=== PATIENT | female | born 1955 | race Native Hawaiian/Other Pacific Islander ===

== ENCOUNTER 2016-05-11 08:44 | Inpatient (IN) | payer OTHER ==
[~2016-05-11 08:44] MED LIST: BENAZEP OR; BENAZEP PO; GLYB PO; HCTZ OR; HCTZ PO; INSU100I2 SC; LANTUS100 MG/ML SC; LEVOTHYROXIN25 MCG PO; METFORM PO; RALO60TA PO; REQUIP0.25 MG PO; ROPINIROLE0.25 MG PO; TRICOR145 MG PO; [UNRECOGNIZED DRUG - CODE] PO
[2016-06-01] MEDS ORDERED: AMLO2.5T PO (22:19)
[2016-06-01] MEDS ORDERED: OXYGEN NAS (22:20)
[2016-06-01] MEDS ORDERED: FURO10SO PO (23:25)
[2016-06-01] MEDS ORDERED: GLIP10TA55 PO (23:26)
[2016-06-01] MEDS ORDERED: HEPARIN LOC IV (23:27)
[2016-06-01] MEDS ORDERED: HUMULIN N100 UNIT/M SC (23:28)
[2016-06-01] MEDS ORDERED: INVOKANA100 MG PO (23:30)
[2016-06-01] MEDS ORDERED: LEVEMIR FL100 UNIT/M SC ×2 (23:31)
[2016-06-01] MEDS ORDERED: COZAAR100 MG PO (23:32)
[2016-06-01] MEDS ORDERED: MULTI VITAMN PO (23:32)
[2016-06-01] MEDS ORDERED: ZANTAC 75 PO (23:33)
[2016-06-01] MEDS ORDERED: CARAFATE1 GM PO (23:33)
[2016-06-01] MEDS ORDERED: TOPAMAX25 MG PO (23:34)
[2016-06-01] MEDS ORDERED: VENL37.511 PO ×2 (23:34→23:35)
[2016-06-01] MEDS ORDERED: ASCO500T18 PO (23:35)
[2016-06-01] MEDS ORDERED: ZIPR20CA PO (23:35)
[2016-06-01] MEDS ORDERED: HYDR25TA15 PO (23:36)
[2016-06-01] MEDS ORDERED: ACCU CHECK SC (23:38)
[2016-06-01] MEDS ORDERED: GUAIFENESIN DM PO (23:38)
[2016-06-01] MEDS ORDERED: NAPROSYN500 MG PO (23:39)
[2016-06-01] MEDS ORDERED: ROBITUSS10 PO (23:40)
[2016-06-01] MEDS ORDERED: [UNRECOGNIZED DRUG - REMARK] PO (23:41)
== END 2016-06-11 08:00 | disposition still patient (30) ==
LOC: PAVA 08:44
PROVIDERS: ADMIT Family Medicine
DX: Z51.89 Encounter for other specified aftercare (principal)

== ENCOUNTER 2016-06-11 09:00 | Inpatient (IN) | payer OTHER ==
[~2016-06-11 09:00] MED LIST changes: +ACCU CHECK SC; +AMLO2.5T PO; +ASCO500T18 PO; +CARAFATE1 GM PO; +COZAAR100 MG PO; +FURO10SO PO; +GLIP10TA55 PO; +GUAIFENESIN DM PO; +HEPARIN LOC IV; +HUMULIN N100 UNIT/M SC; +HYDR25TA15 PO; +INVOKANA100 MG PO; +LEVEMIR FL100 UNIT/M SC; +MULTI VITAMN PO; +NAPROSYN500 MG PO; +OXYGEN NAS; +ROBITUSS10 PO; +TOPAMAX25 MG PO; +VENL37.511 PO; +ZANTAC 75 PO; +ZIPR20CA PO; +[UNRECOGNIZED DRUG - REMARK] PO
== END 2016-07-12 08:43 | disposition still patient (30) ==
LOC: PAVA 09:00
PROVIDERS: ADMIT Family Medicine
DX: Z51.89 Encounter for other specified aftercare (principal)

== ENCOUNTER 2016-07-12 09:27 | Inpatient (IN) | payer OTHER ==
[~2016-07-12] VITALS: Ht 152.4 cm; Wt 88.5 kg
[2016-07-26] MEDS ORDERED: ZIPR20IN IM (02:47)
[2016-07-26] MEDS ORDERED: GUAI200S10 PO (02:50)
[2016-07-26] MEDS ORDERED: TYLENOL325 MG PO (02:51)
[2016-07-26] MEDS ORDERED: ONDA4TAB3 PO (02:52)
[2016-07-26] MEDS ORDERED: OMEP20CA PO (02:55)
[2016-07-26] MEDS ORDERED: PANT40TA PO (02:59)
[2016-07-26] MEDS ORDERED: HYDROCHLOROT12.5 M1 PO (03:03)
[2016-07-26] MEDS ORDERED: LISI10TA11 PO (03:05)
[2016-07-26] MEDS ORDERED: PSYL0.52C PO (03:05)
[2016-07-26] MEDS ORDERED: VENLAFAXINE150 M1 PO (03:06)
[2016-07-26] MEDS ORDERED: DIVA500T2 PO (03:09)
[2016-07-26] MEDS ORDERED: HUMULIN R1 ML SC (03:16)
== END 2016-08-09 08:19 | disposition still patient (30) ==
LOC: PAVA 09:27
PROVIDERS: ADMIT Family Medicine
DX: Z51.89 Encounter for other specified aftercare (principal)

== ENCOUNTER 2016-07-13 03:55 | Outpatient (CLI) | payer OTHER ==
[2016-07-13 04:34] LABS: PLATELET COUNT 196 K/uL (152-353)
[2016-07-13 04:56] LABS: POTASSIUM 2.4 mmol/L (3.6-5.2)
== END 2016-07-13 05:55 ==
LOC: LAB 03:55
PROVIDERS: Family Medicine
DX: Z79.899 Other long term (current) drug therapy (principal); R94.6 Abnormal results of thyroid function studies; Z51.81 Encounter for therapeutic drug level monitoring
CPT/HCPCS: 80053; 83036; 84443; 85027

== ENCOUNTER 2016-07-25 15:47 | Inpatient (IN) | payer OTHER ==
[~2016-07-25] VITALS: Ht 152.4 cm; Wt 88.6 kg
[2016-07-25 16:51] LABS: PLATELET COUNT 180 K/uL (152-353)
[2016-07-25 17:07] LABS: POTASSIUM 2.5 mmol/L (3.6-5.2)
[2016-07-25 23:54] VITALS: BP 125/58; TEMP 98.3; Ht 152.4 cm; Wt 88.6 kg
[2016-07-26] MEDS ORDERED: ZIPR20IN IM ×2 (02:47)
[2016-07-26] MEDS ORDERED: GUAI200S10 PO ×2 (02:50)
[2016-07-26] MEDS ORDERED: TYLENOL325 MG PO ×2 (02:51)
[2016-07-26] MEDS ORDERED: ONDA4TAB3 PO ×2 (02:52)
[2016-07-26] MEDS ORDERED: OMEP20CA PO ×2 (02:55)
[2016-07-26] MEDS ORDERED: PANT40TA PO ×2 (02:59)
[2016-07-26] MEDS ORDERED: HYDROCHLOROT12.5 M1 PO ×2 (03:03)
[2016-07-26] MEDS ORDERED: PSYL0.52C PO ×2 (03:05)
[2016-07-26] MEDS ORDERED: LISI10TA11 PO ×2 (03:05)
[2016-07-26] MEDS ORDERED: VENLAFAXINE150 M1 PO ×2 (03:06)
[2016-07-26] MEDS ORDERED: DIVA500T2 PO ×2 (03:09)
[2016-07-26] MEDS ORDERED: HUMULIN R1 ML SC ×2 (03:16)
[2016-07-26 04:00] VITALS: BP 120/66; TEMP 98
[2016-07-26 04:40] LABS: PLATELET COUNT 203 K/uL (152-353)
[2016-07-26 04:43] LABS: POTASSIUM 2.9 mmol/L (3.6-5.2)
[2016-07-26 06:02] VITALS: BP 120/66; TEMP 98
[2016-07-26 08:38] VITALS: BP 121/49; TEMP 99.9
[2016-07-26 12:00] VITALS: BP 151/63; TEMP 98.2
[2016-07-26 16:00] VITALS: BP 153/60; TEMP 98.4
[2016-07-26 20:00] VITALS: BP 121/51; TEMP 101.6
[2016-07-26 21:53] LABS: POTASSIUM 2.7 mmol/L (3.6-5.2)
[2016-07-27] VITALS: BP 118/53; TEMP 99.7
[2016-07-27 04:00] VITALS: BP 97/45; TEMP 98.8
[2016-07-27 07:55] LABS: PLATELET COUNT 159 K/uL (152-353)
[2016-07-27 08:00] VITALS: BP 137/85; TEMP 98.1
[2016-07-27 12:00] VITALS: BP 138/82; TEMP 98
[2016-07-27 16:00] VITALS: BP 137/70; TEMP 98.7
[2016-07-27 20:00] VITALS: BP 138/64; TEMP 98.2
[2016-07-28] VITALS: BP 116/60; TEMP 98.4
[2016-07-28 04:00] VITALS: BP 124/60; TEMP 97.9
[2016-07-28 06:38] LABS: PLATELET COUNT 107 K/uL (152-353)
[2016-07-28 06:46] LABS: POTASSIUM 3.4 mmol/L (3.6-5.2)
[2016-07-28 08:02] VITALS: BP 141/62; TEMP 98
== END 2016-07-28 10:55 | DRG 872 ==
LOC: LAB 15:47 → MED/SURG 22:19
PROVIDERS: Emergency Medicine; ADMIT Family Medicine
DX: A41.89 Other specified sepsis (principal); L03.116 Cellulitis of left lower limb; L03.115 Cellulitis of right lower limb; N39.0 Urinary tract infection, site not specified; K52.89 Other specified noninfective gastroenteritis and colitis; E86.0 Dehydration; R11.2 Nausea with vomiting, unspecified; R19.7 Diarrhea, unspecified; E11.649 Type 2 diabetes mellitus with hypoglycemia without coma; I10 Essential (primary) hypertension
CPT/HCPCS: 36415; 80048; 80053; 80164; 81000; 82948; 83735; 83880; 84100; 85027; 87040; 87045; 87205; 87328; 87329; 87493; 87798; 87899; 96360; 96365; 96366; 96372; J0712; J3475; J3480

== ENCOUNTER 2016-07-28 20:33 | Outpatient (CLI) | payer OTHER ==
[~2016-07-28] VITALS: Ht 152.4 cm; Wt 88.5 kg
[~2016-07-28 20:33] MED LIST changes: +DIVA500T2 PO; +GUAI200S10 PO; +HUMULIN R1 ML SC; +HYDROCHLOROT12.5 M1 PO; +LISI10TA11 PO; +OMEP20CA PO; +ONDA4TAB3 PO; +PANT40TA PO; +PSYL0.52C PO; +TYLENOL325 MG PO; +VENLAFAXINE150 M1 PO; +ZIPR20IN IM
== END 2016-07-28 21:40 ==
LOC: INF 20:33
DX: L03.116 Cellulitis of left lower limb (principal)
CPT/HCPCS: 96365; J0712

== ENCOUNTER 2016-07-29 08:55 | Outpatient (CLI) | payer OTHER ==
[~2016-07-29] VITALS: Ht 152.4 cm; Wt 88.5 kg
[2016-07-29 09:00] VITALS: BP 127/66; TEMP 99
== END 2016-07-29 19:07 | disposition home or self-care (01) ==
LOC: INF 08:55
DX: L03.116 Cellulitis of left lower limb (principal)
CPT/HCPCS: 96365; 96366; J0712

== ENCOUNTER 2016-07-30 08:44 | Outpatient (CLI) | payer OTHER ==
[~2016-07-30] VITALS: Ht 152.4 cm; Wt 88.5 kg
[2016-07-30 08:40] VITALS: BP 151/67; TEMP 98.2
== END 2016-07-30 19:49 | disposition home or self-care (01) ==
LOC: INF 08:44
DX: L03.116 Cellulitis of left lower limb (principal)
CPT/HCPCS: 96365; 96366; J0712

== ENCOUNTER 2016-07-31 09:01 | Outpatient (CLI) | payer OTHER ==
[~2016-07-31] VITALS: Ht 152.4 cm; Wt 1.8 kg
[2016-07-31 08:55] VITALS: BP 117/69; TEMP 98.7
[2016-07-31 11:44] LABS: PLATELET COUNT 299 K/uL (152-353)
[2016-07-31 11:53] LABS: POTASSIUM 2.7 mmol/L (3.6-5.2)
== END 2016-07-31 20:10 | disposition home or self-care (01) ==
LOC: INF 09:01 → LAB 09:01 → INF 20:10
PROVIDERS: Emergency Medicine
DX: R53.83 Other fatigue (principal)
CPT/HCPCS: 36415; 80053; 85027; 87040; 96365; 96366; J0712

== ENCOUNTER 2016-08-01 08:51 | Outpatient (CLI) | payer OTHER ==
[~2016-08-01] VITALS: Ht 152.4 cm; Wt 88.5 kg
[2016-08-01 08:55] VITALS: BP 139/61; TEMP 98
[2016-08-01 10:10] VITALS: BP 131/58; TEMP 98
== END 2016-08-01 23:38 | disposition home or self-care (01) ==
LOC: INF 08:51
DX: L03.116 Cellulitis of left lower limb (principal)
CPT/HCPCS: 96365; 96366; J0712

== ENCOUNTER 2016-08-02 09:33 | Outpatient (CLI) | payer OTHER ==
[~2016-08-02] VITALS: Ht 152.4 cm; Wt 88.5 kg
[2016-08-02 09:20] VITALS: BP 137/52; TEMP 98
[2016-08-02 10:40] VITALS: BP 150/67; TEMP 98
== END 2016-08-02 18:59 | disposition home or self-care (01) ==
LOC: INF 09:33
DX: L03.116 Cellulitis of left lower limb (principal)
CPT/HCPCS: 96365; J0712

== ENCOUNTER 2016-08-03 09:47 | Outpatient (CLI) | payer OTHER ==
[~2016-08-03] VITALS: Ht 165.1 cm; Wt 59.0 kg
== END 2016-08-03 19:21 | disposition home or self-care (01) ==
LOC: INF 09:47
DX: E87.6 Hypokalemia (principal)
CPT/HCPCS: 96365; 96366; J0712

== ENCOUNTER 2016-08-04 09:11 | Outpatient (CLI) | payer OTHER ==
[~2016-08-04] VITALS: Ht 152.4 cm; Wt 1.8 kg
[2016-08-04 09:45] VITALS: BP 144/67; TEMP 98.5
[2016-08-04 09:53] LABS: PLATELET COUNT 332 K/uL (152-353)
[2016-08-04 10:13] LABS: POTASSIUM 3.5 mmol/L (3.6-5.2)
== END 2016-08-04 19:28 | disposition home or self-care (01) ==
LOC: INF 09:11
PROVIDERS: Emergency Medicine
DX: L03.116 Cellulitis of left lower limb (principal)
CPT/HCPCS: 36415; 80053; 85027; 87040; 96365; 96366; J0712

== ENCOUNTER 2016-08-05 08:37 | Outpatient (CLI) | payer OTHER ==
[~2016-08-05] VITALS: Ht 152.4 cm; Wt 88.5 kg
[2016-08-05 08:37] VITALS: BP 121/56; TEMP 98.5
== END 2016-08-05 19:01 | disposition home or self-care (01) ==
LOC: INF 08:37
DX: L03.116 Cellulitis of left lower limb (principal)
CPT/HCPCS: 96365; 96366; J0712

== ENCOUNTER 2016-08-06 08:49 | Outpatient (CLI) | payer OTHER ==
[~2016-08-06] VITALS: Ht 152.4 cm; Wt 88.5 kg
[2016-08-06 09:05] VITALS: BP 129/57; TEMP 98.2
== END 2016-08-06 18:56 | disposition home or self-care (01) ==
LOC: INF 08:49
DX: L03.116 Cellulitis of left lower limb (principal)
CPT/HCPCS: 96365; 96366; J0712

== ENCOUNTER 2016-08-07 09:42 | Outpatient (CLI) | payer OTHER ==
[~2016-08-07] VITALS: Ht 152.4 cm; Wt 88.5 kg
== END 2016-08-07 11:20 | disposition home or self-care (01) ==
LOC: INF 09:42
DX: L03.116 Cellulitis of left lower limb (principal)
CPT/HCPCS: 96365; 96375; J0712; J1642

== ENCOUNTER 2016-08-09 08:53 | Inpatient (IN) | payer OTHER | END 2016-09-09 08:04 | disposition still patient (30) | LOC: PAVA 08:53 | PROVIDERS: ADMIT Family Medicine | DX: Z51.89 Encounter for other specified aftercare (principal) ==

== ENCOUNTER 2016-09-09 09:56 | Inpatient (IN) | payer OTHER | END 2016-10-09 08:32 | disposition still patient (30) | LOC: PAVA 09:56 | PROVIDERS: ADMIT Family Medicine | DX: Z51.89 Encounter for other specified aftercare (principal) ==

== ENCOUNTER 2016-10-07 01:23 | Outpatient (CLI) | payer OTHER | END 2016-10-07 19:07 | disposition home or self-care (01) | LOC: LAB 01:23 | DX: Z16.24 Resistance to multiple antibiotics (principal) | CPT/HCPCS: 87081 ==

== ENCOUNTER 2016-10-09 08:59 | Inpatient (IN) | payer OTHER | END 2016-11-09 08:12 | disposition still patient (30) | LOC: PAVA 08:59 | PROVIDERS: ADMIT Family Medicine | DX: Z51.89 Encounter for other specified aftercare (principal) ==

== ENCOUNTER 2016-10-11 08:48 | Outpatient (CLI) | payer OTHER ==
[2016-10-11 09:21] LABS: PLATELET COUNT 299 K/uL (152-353)
[2016-10-11 09:58] LABS: POTASSIUM 3.2 mmol/L (3.6-5.2)
== END 2016-10-11 19:10 | disposition home or self-care (01) ==
LOC: LAB 08:48
PROVIDERS: Family Medicine
DX: D64.9 Anemia, unspecified (principal); I10 Essential (primary) hypertension; E11.9 Type 2 diabetes mellitus without complications
CPT/HCPCS: 36415; 80053; 83036; 85027

== ENCOUNTER 2016-11-09 08:32 | Inpatient (IN) | payer OTHER | END 2016-12-09 14:58 | disposition still patient (30) | LOC: PAVA 08:32 | PROVIDERS: ADMIT Family Medicine | DX: Z51.89 Encounter for other specified aftercare (principal) ==

== ENCOUNTER 2016-12-09 15:16 | Inpatient (IN) | payer OTHER | END 2017-01-09 08:42 | disposition still patient (30) | LOC: PAVA 15:16 | PROVIDERS: ADMIT Family Medicine | DX: Z51.89 Encounter for other specified aftercare (principal) ==

== ENCOUNTER 2017-01-09 09:28 | Inpatient (IN) | payer OTHER | END 2017-02-09 08:13 | disposition still patient (30) | LOC: PAVA 09:28 | PROVIDERS: ADMIT Family Medicine | DX: Z51.89 Encounter for other specified aftercare (principal) ==

== ENCOUNTER 2017-01-15 13:38 | Outpatient (CLI) | payer OTHER ==
[2017-01-15 14:35] LABS: PLATELET COUNT 284 K/uL (152-353)
[2017-01-15 14:47] LABS: POTASSIUM 3.1 mmol/L (3.6-5.2); SODIUM 139 mmol/L (136-145)
== END 2017-01-15 19:26 | disposition home or self-care (01) ==
LOC: LAB 13:38
PROVIDERS: Family Medicine
DX: R00.2 Palpitations (principal); D50.8 Other iron deficiency anemias; I10 Essential (primary) hypertension; E11.9 Type 2 diabetes mellitus without complications
CPT/HCPCS: 36415; 80053; 80164; 83036; 84443; 85027

== ENCOUNTER 2017-01-23 09:47 | Day surgery (SDC) | payer OTHER ==
[~2017-01-23] VITALS: Ht 30.5 cm; Wt 0.5 kg
== END 2017-01-23 16:10 ==
LOC: OR 09:47
PROC: 05PY03Z Removal of Infusion Device from Upper Vein, Open Approach (ICD-10-PCS; principal; 2017-01-23)
PROC: 05H533Z Insertion of Infusion Device into Right Subclavian Vein, Percutaneous Approach (ICD-10-PCS; 2017-01-23)
DX: I87.8 Other specified disorders of veins (principal); T82.594A Other mechanical complication of infusion catheter, initial encounter
CPT/HCPCS: C1769; C1788; J0690; J1644; J2001; J2250; J2405; J2704; J3010; S0028

== ENCOUNTER 2017-02-09 08:37 | Inpatient (IN) | payer OTHER | END 2017-03-11 09:10 | disposition still patient (30) | LOC: PAVA 08:37 | PROVIDERS: ADMIT Family Medicine | DX: Z51.89 Encounter for other specified aftercare (principal) ==

== ENCOUNTER 2017-03-11 09:34 | Inpatient (IN) | payer OTHER | END 2017-04-11 10:26 | disposition still patient (30) | LOC: PAVA 09:34 | PROVIDERS: ADMIT Family Medicine ==

== ENCOUNTER 2017-04-11 12:53 | Inpatient (IN) | payer OTHER | END 2017-05-11 08:14 | disposition still patient (30) | LOC: PAVA 12:53 | PROVIDERS: ADMIT Family Medicine ==

== ENCOUNTER 2017-04-16 07:51 | Outpatient (CLI) | payer OTHER ==
[2017-04-16 08:20] LABS: PLATELET COUNT 247 K/uL (152-353)
[2017-04-16 08:24] LABS: POTASSIUM 3.7 mmol/L (3.6-5.2)
== END 2017-04-16 08:55 | disposition home or self-care (01) ==
LOC: LAB 07:51
PROVIDERS: Family Medicine
DX: Z79.01 Long term (current) use of anticoagulants (principal); Z13.1 Encounter for screening for diabetes mellitus; Z51.81 Encounter for therapeutic drug level monitoring; E11.9 Type 2 diabetes mellitus without complications
CPT/HCPCS: 36415; 80053; 83036; 85027

== ENCOUNTER 2017-04-23 10:01 | Outpatient (CLI) | payer OTHER | END 2017-04-23 11:05 | disposition home or self-care (01) | LOC: RAD 10:01 | DX: M25.512 Pain in left shoulder (principal); M25.511 Pain in right shoulder ==

== ENCOUNTER 2017-05-11 09:11 | Inpatient (IN) | payer OTHER | END 2017-06-11 08:33 | disposition still patient (30) | LOC: PAVA 09:11 | PROVIDERS: ADMIT Family Medicine ==

== ENCOUNTER 2017-06-11 09:17 | Inpatient (IN) | payer OTHER | END 2017-07-12 08:34 | disposition still patient (30) | LOC: PAVA 09:17 | PROVIDERS: ADMIT Family Medicine ==

== ENCOUNTER 2017-07-12 09:44 | Inpatient (IN) | payer OTHER | END 2017-08-09 08:09 | disposition still patient (30) | LOC: PAVA 09:44 | PROVIDERS: ADMIT Family Medicine ==

== ENCOUNTER 2017-08-09 09:11 | Inpatient (IN) | payer OTHER | END 2017-09-09 08:00 | disposition still patient (30) | LOC: PAVA 09:11 | PROVIDERS: ADMIT Family Medicine ==

== ENCOUNTER 2017-09-09 09:00 | Inpatient (IN) | payer OTHER | END 2017-10-09 08:13 | disposition still patient (30) | LOC: PAVA 09:00 | PROVIDERS: ADMIT Family Medicine ==

== ENCOUNTER 2017-09-10 15:15 | Outpatient (CLI) | payer OTHER | END 2017-09-10 23:39 | disposition home or self-care (01) | LOC: US 15:15 | DX: R22.1 Localized swelling, mass and lump, neck (principal); H92.02 Otalgia, left ear | CPT/HCPCS: 36415; 85027; 87040 ==

== ENCOUNTER 2017-09-10 18:54 | Outpatient (CLI) | payer OTHER ==
[2017-09-10 19:39] LABS: PLATELET COUNT 256 K/uL (152-353)
== END 2017-09-10 23:40 | disposition home or self-care (01) ==
LOC: LABW 18:54
PROVIDERS: Family Medicine
DX: H92.02 Otalgia, left ear (principal); R22.1 Localized swelling, mass and lump, neck
CPT/HCPCS: 36415; 85027; 87040

== ENCOUNTER 2017-09-14 10:20 | Outpatient (CLI) | payer OTHER | END 2017-09-14 20:25 | disposition home or self-care (01) | LOC: LAB 10:20 | DX: D50.8 Other iron deficiency anemias (principal) | CPT/HCPCS: 36415; 82728; 83540; 83550 ==

== ENCOUNTER 2017-09-27 07:31 | Day surgery (SDC) | payer OTHER ==
[2017-09-27 08:23] LABS: PLATELET COUNT 216 K/uL (152-353)
== END 2017-09-27 10:02 ==
LOC: OR 07:31
PROVIDERS: Internal Medicine
PROC: 0DB68ZZ Excision of Stomach, Via Natural or Artificial Opening Endoscopic (ICD-10-PCS; principal; 2017-09-27)
DX: C15.5 Malignant neoplasm of lower third of esophagus (principal); R07.0 Pain in throat; K22.9 Disease of esophagus, unspecified; K25.9 Gastric ulcer, unspecified as acute or chronic, without hemorrhage or perforation; K29.50 Unspecified chronic gastritis without bleeding; K21.9 Gastro-esophageal reflux disease without esophagitis
CPT/HCPCS: 80053; 85027; J1642; J2001; J2405; J2704; J3490

== ENCOUNTER 2017-10-09 08:54 | Inpatient (IN) | payer OTHER | END 2017-11-09 08:22 | disposition still patient (30) | LOC: PAVA 08:54 | PROVIDERS: ADMIT Family Medicine ==

== ENCOUNTER 2017-10-16 07:59 | Outpatient (CLI) | payer OTHER ==
[2017-10-16 08:29] LABS: PLATELET COUNT 257 K/uL (152-353)
== END 2017-10-16 19:51 | disposition home or self-care (01) ==
LOC: LAB 07:59
PROVIDERS: Family Medicine
DX: I10 Essential (primary) hypertension (principal); E11.9 Type 2 diabetes mellitus without complications
CPT/HCPCS: 36415; 80053; 83036; 85027

== ENCOUNTER 2017-11-07 08:04 | Outpatient (CLI) | payer OTHER | END 2017-11-07 23:15 | disposition home or self-care (01) | LOC: CT 08:04 | DX: C15.5 Malignant neoplasm of lower third of esophagus (principal) ==

== ENCOUNTER 2017-11-09 08:48 | Inpatient (IN) | payer OTHER | END 2017-12-09 14:16 | disposition still patient (30) | LOC: PAVA 08:48 | PROVIDERS: ADMIT Family Medicine ==

== ENCOUNTER 2017-11-20 15:51 | Outpatient (CLI) | payer OTHER | END 2017-11-20 22:52 | disposition home or self-care (01) | LOC: LAB 15:51 | DX: T81.30XA Disruption of wound, unspecified, initial encounter (principal) | CPT/HCPCS: 87070; 87077; 87185; 87186; 87205 ==

== ENCOUNTER 2017-12-09 14:37 | Inpatient (IN) | payer OTHER | END 2018-01-09 08:00 | disposition still patient (30) | LOC: PAVA 14:37 | PROVIDERS: ADMIT Family Medicine ==

== ENCOUNTER 2018-01-01 04:14 | Outpatient (CLI) | payer OTHER ==
[2018-01-01 06:36] LABS: POTASSIUM 2.5 mmol/L (3.6-5.2)
== END 2018-01-01 19:21 | disposition home or self-care (01) ==
LOC: LAB 04:14
PROVIDERS: Family Medicine
DX: E87.6 Hypokalemia (principal)
CPT/HCPCS: 36415; 80053

== ENCOUNTER 2018-01-07 04:05 | Outpatient (CLI) | payer OTHER ==
[2018-01-07 06:31] LABS: POTASSIUM 2.5 mmol/L (3.6-5.2)
== END 2018-01-07 21:57 | disposition home or self-care (01) ==
LOC: LAB 04:05
PROVIDERS: Family Medicine
DX: R79.89 Other specified abnormal findings of blood chemistry (principal)
CPT/HCPCS: 80053

== ENCOUNTER 2018-01-09 09:00 | Inpatient (IN) | payer OTHER | END 2018-02-09 09:58 | disposition still patient (30) | LOC: PAVA 09:00 | PROVIDERS: ADMIT Family Medicine ==

== ENCOUNTER 2018-01-14 05:18 | Outpatient (CLI) | payer OTHER ==
[2018-01-14 08:51] LABS: POTASSIUM 2.9 mmol/L (3.6-5.2); SODIUM 143 mmol/L (136-145)
[2018-01-14 09:33] LABS: PLATELET COUNT 64 K/uL (152-353)
== END 2018-01-14 19:33 | disposition home or self-care (01) ==
LOC: LAB 05:18
PROVIDERS: Family Medicine
DX: E11.9 Type 2 diabetes mellitus without complications (principal); Z79.899 Other long term (current) drug therapy
CPT/HCPCS: 36415; 80053; 80164; 83036; 84443; 85027

== ENCOUNTER 2018-01-24 03:38 | Outpatient (CLI) | payer OTHER ==
[2018-01-24 06:45] LABS: POTASSIUM 3.9 mmol/L (3.6-5.2)
== END 2018-01-24 21:09 | disposition home or self-care (01) ==
LOC: LAB 03:38
PROVIDERS: Family Medicine
DX: E87.4 Mixed disorder of acid-base balance (principal)
CPT/HCPCS: 36415; 80053

== ENCOUNTER 2018-02-09 10:15 | Inpatient (IN) | payer OTHER | END 2018-03-11 08:41 | disposition still patient (30) | LOC: PAVA 10:15 | PROVIDERS: ADMIT Family Medicine ==

== ENCOUNTER 2018-03-11 09:06 | Inpatient (IN) | payer OTHER | END 2018-04-11 08:12 | disposition still patient (30) | LOC: PAVA 09:06 | PROVIDERS: ADMIT Family Medicine ==

== ENCOUNTER 2018-04-11 08:34 | Inpatient (IN) | payer OTHER | END 2018-05-11 08:07 | disposition still patient (30) | LOC: PAVA 08:34 | PROVIDERS: ADMIT Family Medicine ==

== ENCOUNTER 2018-04-15 03:51 | Outpatient (CLI) | payer OTHER ==
[2018-04-15 04:46] LABS: PLATELET COUNT 234 K/uL (152-353)
[2018-04-15 05:15] LABS: POTASSIUM 2.2 mmol/L (3.6-5.2)
== END 2018-04-15 19:14 | disposition home or self-care (01) ==
LOC: LAB 03:51
PROVIDERS: Family Medicine
DX: E11.9 Type 2 diabetes mellitus without complications (principal); I10 Essential (primary) hypertension
CPT/HCPCS: 36415; 80053; 83036; 85027

== ENCOUNTER 2018-04-16 14:14 | Outpatient (CLI) | payer OTHER | END 2018-04-16 22:20 | disposition home or self-care (01) | LOC: RAD 14:14 | DX: R06.89 Other abnormalities of breathing (principal) | CPT/HCPCS: 36600; 82805 ==

== ENCOUNTER 2018-04-17 08:06 | Outpatient (CLI) | payer OTHER | END 2018-04-17 20:28 | disposition home or self-care (01) | LOC: LAB 08:06 | DX: R79.89 Other specified abnormal findings of blood chemistry (principal) | CPT/HCPCS: 84132 ==

== ENCOUNTER 2018-04-22 17:59 | Outpatient (CLI) | payer OTHER | END 2018-04-22 22:56 | disposition home or self-care (01) | LOC: LAB 17:59 | DX: E87.6 Hypokalemia (principal) | CPT/HCPCS: 84132 ==

== ENCOUNTER 2018-05-11 08:24 | Inpatient (IN) | payer OTHER | END 2018-06-11 10:23 | disposition still patient (30) | LOC: PAVA 08:24 | PROVIDERS: ADMIT Family Medicine ==

== ENCOUNTER 2018-05-29 09:55 | Outpatient (CLI) | payer OTHER | END 2018-05-29 19:21 | disposition home or self-care (01) | LOC: CT 09:55 | DX: C15.5 Malignant neoplasm of lower third of esophagus (principal) | CPT/HCPCS: 82565; 84520 ==

== ENCOUNTER 2018-06-11 11:01 | Inpatient (IN) | payer OTHER | END 2018-07-12 14:18 | disposition still patient (30) | LOC: PAVA 11:01 | PROVIDERS: ADMIT Family Medicine ==

== ENCOUNTER 2018-07-12 14:19 | Inpatient (IN) | payer OTHER | END 2018-08-09 09:16 | disposition still patient (30) | LOC: PAVA 14:19 | PROVIDERS: ADMIT Family Medicine ==

== ENCOUNTER 2018-08-09 10:08 | Inpatient (IN) | payer OTHER | END 2018-09-09 07:57 | disposition still patient (30) | LOC: PAVA 10:08 | PROVIDERS: ADMIT Family Medicine ==

== ENCOUNTER 2018-09-02 03:57 | Outpatient (CLI) | payer OTHER | END 2018-09-02 19:18 | disposition home or self-care (01) | LOC: LAB 03:57 | DX: E11.9 Type 2 diabetes mellitus without complications (principal) | CPT/HCPCS: 83036 ==

== ENCOUNTER 2018-09-09 08:38 | Inpatient (IN) | payer OTHER | END 2018-10-09 09:44 | disposition still patient (30) | LOC: PAVA 08:38 | PROVIDERS: ADMIT Family Medicine ==

== ENCOUNTER 2018-10-05 03:56 | Outpatient (CLI) | payer OTHER | END 2018-10-05 22:32 | disposition home or self-care (01) | LOC: LAB 03:56 | DX: R79.9 Abnormal finding of blood chemistry, unspecified (principal) | CPT/HCPCS: 84132 ==

== ENCOUNTER 2018-10-09 11:06 | Inpatient (IN) | payer OTHER | END 2018-11-09 08:14 | disposition still patient (30) | LOC: PAVA 11:06 | PROVIDERS: ADMIT Family Medicine | DX: Z51.89 Encounter for other specified aftercare (principal) ==

== ENCOUNTER 2018-10-13 03:37 | Outpatient (CLI) | payer OTHER | END 2018-10-13 19:35 | disposition home or self-care (01) | LOC: LAB 03:37 | DX: E87.6 Hypokalemia (principal) | CPT/HCPCS: 84132 ==

== ENCOUNTER 2018-10-28 03:46 | Outpatient (CLI) | payer OTHER | END 2018-10-28 19:14 | disposition home or self-care (01) | LOC: LAB 03:46 | DX: E87.5 Hyperkalemia (principal) | CPT/HCPCS: 36415; 84132 ==

== ENCOUNTER 2018-11-09 08:31 | Inpatient (IN) | payer OTHER | END 2018-12-09 08:31 | disposition still patient (30) | LOC: PAVA 08:31 | PROVIDERS: ADMIT Family Medicine ==

== ENCOUNTER 2018-11-13 07:32 | Outpatient (CLI) | payer OTHER ==
[2018-11-13 07:42] LABS: PLATELET COUNT 210 K/uL (152-353)
[2018-11-13 08:31] LABS: POTASSIUM 3.2 mmol/L (3.6-5.2)
== END 2018-11-13 23:26 | disposition home or self-care (01) ==
LOC: LAB 07:32
PROVIDERS: Family Medicine
DX: E11.9 Type 2 diabetes mellitus without complications (principal)
CPT/HCPCS: 36415; 80053; 83036; 85027

== ENCOUNTER 2018-12-09 09:23 | Inpatient (IN) | payer OTHER | END 2019-01-09 09:09 | disposition still patient (30) | LOC: PAVA 09:23 | PROVIDERS: ADMIT Family Medicine ==

== ENCOUNTER 2019-01-09 10:18 | Inpatient (IN) | payer OTHER | END 2019-02-09 16:00 | disposition still patient (30) | LOC: PAVA 10:18 | PROVIDERS: ADMIT Family Medicine ==

== ENCOUNTER 2019-02-09 16:05 | Inpatient (IN) | payer OTHER | END 2019-03-11 08:07 | disposition still patient (30) | LOC: PAVA 16:05 | PROVIDERS: ADMIT Family Medicine ==

== ENCOUNTER → 2019-02-10 | Outpatient (CLI) | payer OTHER ==
[2019-02-10 06:44] LABS: PLATELET COUNT 163 K/uL (152-353)
[2019-02-10 06:59] LABS: POTASSIUM 3.9 mmol/L (3.6-5.2); SODIUM 140 mmol/L (136-145)
== END ==
LOC: LAB 04:03
PROVIDERS: Family Medicine
DX: E11.9 Type 2 diabetes mellitus without complications (principal); Z79.899 Other long term (current) drug therapy; E03.8 Other specified hypothyroidism
CPT/HCPCS: 36415; 80053; 80164; 83036; 84443; 85027

== ENCOUNTER 2019-03-05 03:29 | Outpatient (CLI) | payer OTHER ==
[2019-03-05 05:31] LABS: POTASSIUM 3.6 mmol/L (3.6-5.2)
== END 2019-03-05 20:13 | disposition home or self-care (01) ==
LOC: LAB 03:29 → US 03:29 → LAB 20:13
PROVIDERS: Family Medicine
DX: R79.89 Other specified abnormal findings of blood chemistry (principal); N19 Unspecified kidney failure
CPT/HCPCS: 80053

== ENCOUNTER 2019-03-06 00:55 | Outpatient (CLI) | payer OTHER | END 2019-03-06 19:42 | disposition home or self-care (01) | LOC: LAB 00:55 | DX: R82.998 Other abnormal findings in urine (principal) | CPT/HCPCS: 82570; 82575; 83935; 84156 ==

== ENCOUNTER 2019-03-11 09:17 | Inpatient (IN) | payer OTHER | END 2019-04-11 09:04 | disposition still patient (30) | LOC: PAVA 09:17 | PROVIDERS: ADMIT Family Medicine ==

== ENCOUNTER 2019-03-20 03:51 | Outpatient (CLI) | payer OTHER ==
[2019-03-20 05:48] LABS: POTASSIUM 3.8 mmol/L (3.6-5.2)
== END 2019-03-20 20:35 | disposition home or self-care (01) ==
LOC: LAB 03:51
PROVIDERS: Family Medicine
DX: R79.89 Other specified abnormal findings of blood chemistry (principal)
CPT/HCPCS: 80053

== ENCOUNTER 2019-04-10 03:30 | Outpatient (CLI) | payer OTHER | END 2019-04-10 20:30 | disposition home or self-care (01) | LOC: LAB 03:30 | DX: D50.8 Other iron deficiency anemias (principal); E55.9 Vitamin D deficiency, unspecified | CPT/HCPCS: 82306; 82607; 82746 ==

== ENCOUNTER 2019-04-11 11:05 | Inpatient (IN) | payer OTHER | END 2019-05-11 08:00 | disposition still patient (30) | LOC: PAVA 11:05 | PROVIDERS: ADMIT Family Medicine ==

== ENCOUNTER 2019-05-11 09:00 | Inpatient (IN) | payer OTHER | END 2019-06-11 08:00 | disposition still patient (30) | LOC: PAVA 09:00 | PROVIDERS: ADMIT Family Medicine ==

== ENCOUNTER 2019-05-13 07:06 | Outpatient (CLI) | payer OTHER | END 2019-05-13 20:13 | disposition home or self-care (01) | LOC: LAB 07:06 | DX: E11.9 Type 2 diabetes mellitus without complications (principal) | CPT/HCPCS: 83036 ==

== ENCOUNTER 2019-06-11 08:31 | Inpatient (IN) | payer OTHER | END 2019-07-12 09:32 | disposition still patient (30) | LOC: PAVA 08:31 | PROVIDERS: ADMIT Family Medicine ==

== ENCOUNTER 2019-07-12 09:52 | Inpatient (IN) | payer OTHER | END 2019-08-10 12:47 | disposition still patient (30) | LOC: PAVA 09:52 | PROVIDERS: ADMIT Family Medicine ==

== ENCOUNTER 2019-08-10 13:09 | Inpatient (IN) | payer OTHER | END 2019-09-10 08:59 | disposition still patient (30) | LOC: PAVA 13:09 | PROVIDERS: ADMIT Family Medicine ==

== ENCOUNTER 2019-08-11 05:40 | Outpatient (CLI) | payer OTHER ==
[2019-08-11 06:15] LABS: PLATELET COUNT 182 K/uL (152-353)
[2019-08-11 07:05] LABS: POTASSIUM 3.9 mmol/L (3.6-5.2)
== END 2019-08-11 19:06 | disposition home or self-care (01) ==
LOC: LAB 05:40
PROVIDERS: Family Medicine
DX: E11.9 Type 2 diabetes mellitus without complications (principal); Z79.899 Other long term (current) drug therapy; E03.9 Hypothyroidism, unspecified
CPT/HCPCS: 80053; 80164; 83036; 84443; 85027

== ENCOUNTER 2019-09-10 09:27 | Inpatient (IN) | payer OTHER | END 2019-10-10 08:04 | disposition still patient (30) | LOC: PAVA 09:27 | PROVIDERS: ADMIT Family Medicine ==

== ENCOUNTER 2019-10-10 08:56 | Inpatient (IN) | payer OTHER | END 2019-11-10 08:12 | disposition still patient (30) | LOC: PAVA 08:56 | PROVIDERS: ADMIT Family Medicine | CPT/HCPCS: 87635; U0002 ==

== ENCOUNTER 2019-11-10 06:31 | Outpatient (CLI) | payer OTHER | END 2019-11-10 19:49 | disposition home or self-care (01) | LOC: LAB 06:31 | DX: E11.9 Type 2 diabetes mellitus without complications (principal) | CPT/HCPCS: 83036 ==

== ENCOUNTER 2019-11-10 08:47 | Inpatient (IN) | payer OTHER | END 2019-12-10 08:27 | disposition still patient (30) | LOC: PAVA 08:47 | PROVIDERS: ADMIT Family Medicine | CPT/HCPCS: 87635; U0002 ==

== ENCOUNTER 2019-12-10 09:54 | Inpatient (IN) | payer OTHER | END 2020-01-10 08:23 | disposition still patient (30) | LOC: PAVA 09:54 | PROVIDERS: ADMIT Family Medicine | CPT/HCPCS: 87635; U0002 ==

== ENCOUNTER 2020-01-10 09:03 | Inpatient (IN) | payer OTHER | END 2020-02-10 10:51 | disposition still patient (30) | LOC: PAVA 09:03 | PROVIDERS: ADMIT Family Medicine | CPT/HCPCS: 87635; U0002 ==

== ENCOUNTER 2020-02-10 11:33 | Inpatient (IN) | payer OTHER | END 2020-03-11 09:34 | disposition still patient (30) | LOC: PAVA 11:33 | PROVIDERS: ADMIT Family Medicine ==

== ENCOUNTER 2020-02-12 07:02 | Outpatient (CLI) | payer OTHER ==
[2020-02-12 07:30] LABS: PLATELET COUNT 165 K/uL (152-353)
== END 2020-02-12 21:46 | disposition home or self-care (01) ==
LOC: LAB 07:02
PROVIDERS: Family Medicine
DX: Z79.899 Other long term (current) drug therapy (principal); E03.8 Other specified hypothyroidism; J44.9 Chronic obstructive pulmonary disease, unspecified; E78.49 Other hyperlipidemia; D50.8 Other iron deficiency anemias; E11.65 Type 2 diabetes mellitus with hyperglycemia; I10 Essential (primary) hypertension
CPT/HCPCS: 80053; 80164; 83036; 84443; 85027

== ENCOUNTER 2020-03-11 10:55 | Inpatient (IN) | payer OTHER | END 2020-04-11 08:00 | disposition still patient (30) | LOC: PAVA 10:55 | PROVIDERS: ADMIT Family Medicine ==

== ENCOUNTER 2020-04-11 09:00 | Inpatient (IN) | payer OTHER | END 2020-05-11 08:39 | disposition still patient (30) | LOC: PAVA 09:00 | PROVIDERS: ADMIT Family Medicine; ATTEND Family Medicine ==

== ENCOUNTER 2020-05-11 06:54 | Outpatient (CLI) | payer OTHER | END 2020-05-11 22:21 | disposition home or self-care (01) | LOC: LAB 06:54 | PROVIDERS: ATTEND Family Medicine | DX: E11.9 Type 2 diabetes mellitus without complications (principal); J44.9 Chronic obstructive pulmonary disease, unspecified; E78.5 Hyperlipidemia, unspecified; D50.9 Iron deficiency anemia, unspecified; I10 Essential (primary) hypertension | CPT/HCPCS: 83036 ==

== ENCOUNTER 2020-05-11 09:37 | Inpatient (IN) | payer OTHER | END 2020-06-11 08:29 | disposition still patient (30) | LOC: PAVA 09:37 | PROVIDERS: ADMIT Family Medicine; ATTEND Family Medicine ==

== ENCOUNTER 2020-06-11 09:01 | Inpatient (IN) | payer OTHER | END 2020-07-12 13:11 | disposition still patient (30) | LOC: PAVA 09:01 | PROVIDERS: ADMIT Family Medicine; ATTEND Family Medicine ==

== ENCOUNTER 2020-07-12 14:27 | Inpatient (IN) | payer OTHER | END 2020-08-09 08:41 | disposition still patient (30) | LOC: PAVA 14:27 | PROVIDERS: ADMIT Family Medicine; ATTEND Family Medicine ==

== ENCOUNTER 2020-08-09 09:19 | Inpatient (IN) | payer OTHER | END 2020-09-09 08:34 | disposition still patient (30) | LOC: PAVA 09:19 | PROVIDERS: ADMIT Family Medicine; ATTEND Family Medicine ==

== ENCOUNTER 2020-08-11 11:36 | Outpatient (CLI) | payer OTHER ==
[2020-08-11 12:28] LABS: POTASSIUM 4.2 mmol/L (3.6-5.2)
[2020-08-11 12:39] LABS: PLATELET COUNT 194 K/uL (152-353)
== END 2020-08-11 21:11 | disposition home or self-care (01) ==
LOC: LAB 11:36
PROVIDERS: ATTEND Family Medicine
DX: E03.8 Other specified hypothyroidism (principal); J44.9 Chronic obstructive pulmonary disease, unspecified; E78.49 Other hyperlipidemia; D50.8 Other iron deficiency anemias; E11.65 Type 2 diabetes mellitus with hyperglycemia; I10 Essential (primary) hypertension
CPT/HCPCS: 80053; 80164; 83036; 84443; 85027

== ENCOUNTER 2020-09-09 09:45 | Inpatient (IN) | payer OTHER | END 2020-10-09 11:58 | disposition still patient (30) | LOC: PAVA 09:45 | PROVIDERS: ADMIT Family Medicine; ATTEND Family Medicine ==

== ENCOUNTER 2020-10-07 17:07 | Outpatient (CLI) | payer OTHER ==
[2020-10-07 17:41] LABS: PLATELET COUNT 179 K/uL (152-353)
[2020-10-07 17:59] LABS: POTASSIUM 4.8 mmol/L (3.6-5.2); SODIUM 137 mmol/L (136-145)
== END 2020-10-07 20:42 | disposition home or self-care (01) ==
LOC: LABW 17:07
PROVIDERS: ATTEND Family Medicine
DX: J44.9 Chronic obstructive pulmonary disease, unspecified (principal); R06.02 Shortness of breath; R53.83 Other fatigue; D64.89 Other specified anemias
CPT/HCPCS: 36415; 80053; 82553; 83735; 84100; 84484; 85027; 85379; 93005

== ENCOUNTER 2020-10-08 00:37 | Outpatient (CLI) | payer OTHER | END 2020-10-08 21:42 | disposition home or self-care (01) | LOC: LAB 00:37 | PROVIDERS: ATTEND Family Medicine | DX: R53.83 Other fatigue (principal) | CPT/HCPCS: 81000; 87077; 87086; 87088; 87186 ==

== ENCOUNTER 2020-10-09 12:14 | Inpatient (IN) | payer OTHER | END 2020-11-09 13:25 | disposition still patient (30) | LOC: PAVA 12:14 | PROVIDERS: ADMIT Family Medicine; ATTEND Family Medicine ==

== ENCOUNTER 2020-10-11 14:07 | Outpatient (CLI) | payer OTHER | END 2020-10-11 19:45 | disposition home or self-care (01) | LOC: RESP 14:07 | PROVIDERS: ATTEND Family Medicine | DX: R06.02 Shortness of breath (principal) ==

== ENCOUNTER 2020-10-14 08:08 | Outpatient (CLI) | payer OTHER ==
[~2020-10-14] VITALS: Ht 142.2 cm; Wt 74.4 kg
== END 2020-10-14 20:23 | disposition home or self-care (01) ==
LOC: NM 08:08
PROVIDERS: ATTEND Family Medicine
DX: R06.02 Shortness of breath (principal)
CPT/HCPCS: A9500; J2785

== ENCOUNTER 2020-11-01 07:36 | Outpatient (CLI) | payer OTHER ==
[2020-11-01 08:04] LABS: POTASSIUM 3.6 mmol/L (3.6-5.2); SODIUM 141 mmol/L (136-145)
== END 2020-11-01 20:54 | disposition home or self-care (01) ==
LOC: LAB 07:36
PROVIDERS: ATTEND Family Medicine
DX: E11.42 Type 2 diabetes mellitus with diabetic polyneuropathy (principal); E11.65 Type 2 diabetes mellitus with hyperglycemia; I10 Essential (primary) hypertension
CPT/HCPCS: 80053; 82553; 83735; 84100; 84484

== ENCOUNTER 2020-11-02 09:16 | Outpatient (CLI) | payer OTHER ==
[~2020-11-02] VITALS: Ht 152.4 cm; Wt 84.4 kg
== END 2020-11-02 22:04 | disposition home or self-care (01) ==
LOC: INF 09:16
PROVIDERS: ATTEND Family Medicine
DX: Z00.01 Encounter for general adult medical examination with abnormal findings (principal); E77.8 Other disorders of glycoprotein metabolism
CPT/HCPCS: 96361; 96374

== ENCOUNTER 2020-11-04 09:06 | Outpatient (CLI) | payer OTHER ==
[2020-11-04 09:19] LABS: POTASSIUM 3.3 mmol/L (3.6-5.2)
== END 2020-11-04 22:00 | disposition home or self-care (01) ==
LOC: LAB 09:06
PROVIDERS: ATTEND Family Medicine
DX: E03.8 Other specified hypothyroidism (principal); I10 Essential (primary) hypertension; E11.42 Type 2 diabetes mellitus with diabetic polyneuropathy
CPT/HCPCS: 80053

== ENCOUNTER 2020-11-09 14:30 | Inpatient (IN) | payer OTHER | END 2020-12-09 08:00 | disposition still patient (30) | LOC: PAVA 14:30 | PROVIDERS: ADMIT Family Medicine; ATTEND Family Medicine ==

== ENCOUNTER 2020-11-10 11:35 | Outpatient (CLI) | payer OTHER | END 2020-11-10 21:00 | disposition home or self-care (01) | LOC: LAB 11:35 | PROVIDERS: ATTEND Family Medicine | DX: J44.9 Chronic obstructive pulmonary disease, unspecified (principal); E78.49 Other hyperlipidemia; D50.8 Other iron deficiency anemias; E11.65 Type 2 diabetes mellitus with hyperglycemia; I10 Essential (primary) hypertension | CPT/HCPCS: 83036 ==

== ENCOUNTER 2020-12-09 09:20 | Inpatient (IN) | payer OTHER | END 2021-01-09 08:00 | disposition still patient (30) | LOC: PAVA 09:20 | PROVIDERS: ADMIT Family Medicine; ATTEND Family Medicine ==

== ENCOUNTER 2020-12-14 14:02 | Outpatient (CLI) | payer OTHER | END 2020-12-14 19:19 | disposition home or self-care (01) | LOC: LAB 14:02 | PROVIDERS: ATTEND Family Medicine | DX: R82.998 Other abnormal findings in urine (principal); R45.1 Restlessness and agitation; R30.0 Dysuria; R35.0 Frequency of micturition | CPT/HCPCS: 81000 ==

== ENCOUNTER 2021-01-05 07:30 | Outpatient (CLI) | payer OTHER | END 2021-01-05 23:24 | disposition home or self-care (01) | LOC: LAB 07:30 | PROVIDERS: ATTEND Family Medicine | DX: E11.42 Type 2 diabetes mellitus with diabetic polyneuropathy (principal) | CPT/HCPCS: 82947 ==

== ENCOUNTER 2021-01-09 09:00 | Inpatient (IN) | payer OTHER ==
[2021-02-01] MEDS ORDERED: PX ASPIRIN325 M1 PO (03:22)
[2021-02-01] MEDS ORDERED: LORA10TA3 PO (03:24)
[2021-02-01] MEDS ORDERED: VENLAFAXINE150 M1 PO (03:25)
[2021-02-01] MEDS ORDERED: FLONASE AL50 MCG/ACT NAS (03:26)
[2021-02-01] MEDS ORDERED: ZIPR20CA PO ×2 (03:30→03:32)
[2021-02-01] MEDS ORDERED: LEVEMIR FL100 UNIT/M SC (03:40)
[2021-02-01] MEDS ORDERED: POT CHLORIDE10 ME1 PO (03:55)
[2021-02-01] MEDS ORDERED: CARV3.12 PO (04:01)
[2021-02-01] MEDS ORDERED: VALPROIC A250 MG/5 M PO (04:04)
== END 2021-02-09 09:09 | disposition still patient (30) ==
LOC: PAVA 09:00
PROVIDERS: ADMIT Family Medicine; ATTEND Family Medicine

== ENCOUNTER 2021-01-10 09:33 | Outpatient (CLI) | payer OTHER | END 2021-01-10 22:38 | disposition home or self-care (01) | LOC: LAB 09:33 | PROVIDERS: ATTEND Family Medicine | DX: R32 Unspecified urinary incontinence (principal) | CPT/HCPCS: 81000 ==

== ENCOUNTER 2021-01-13 12:57 | Emergency (ER) | payer OTHER ==
[~2021-01-13] VITALS: Ht 152.4 cm; Wt 77.2 kg
[2021-01-13 12:57] VITALS: TEMP 98.8
[2021-01-13 14:05] LABS: PLATELET COUNT 175 K/uL (152-353)
[2021-01-13 17:00] VITALS: BP 119/60
== END 2021-01-13 17:17 ==
LOC: ED 12:59
PROVIDERS: Emergency Medicine Emergency Medical Services
DX: R53.1 Weakness (principal); W18.39XA Other fall on same level, initial encounter; Z91.81 History of falling; Y92.128 Other place in nursing home as the place of occurrence of the external cause
CPT/HCPCS: 36415; 80053; 81000; 85027; 96360; 99284; J1642

== ENCOUNTER 2021-01-14 09:24 | Outpatient (CLI) | payer OTHER ==
[2021-01-14 10:02] LABS: POTASSIUM 3.7 mmol/L (3.6-5.2)
== END 2021-01-14 19:57 | disposition home or self-care (01) ==
LOC: LAB 09:24
PROVIDERS: ATTEND Family Medicine
DX: E11.9 Type 2 diabetes mellitus without complications (principal); I10 Essential (primary) hypertension
CPT/HCPCS: 80053

== ENCOUNTER 2021-01-25 08:01 | Outpatient (CLI) | payer OTHER | END 2021-01-25 21:18 | disposition home or self-care (01) | LOC: LAB 08:01 | PROVIDERS: ATTEND Family Medicine | DX: N39.0 Urinary tract infection, site not specified (principal) | CPT/HCPCS: 81000; 87077; 87086; 87088; 87186 ==

== ENCOUNTER 2021-02-04 06:23 | Outpatient (CLI) | payer OTHER ==
[~2021-02-04 06:23] MED LIST changes: +CARV3.12 PO; +FLONASE AL50 MCG/ACT NAS; +LORA10TA3 PO; +POT CHLORIDE10 ME1 PO; +PX ASPIRIN325 M1 PO; +VALPROIC A250 MG/5 M PO
[2021-02-04 09:07] LABS: POTASSIUM 4.4 mmol/L (3.6-5.2)
[2021-02-04 09:16] LABS: PLATELET COUNT 106 K/uL (152-353)
== END 2021-02-04 21:56 | disposition home or self-care (01) ==
LOC: LAB 06:23
PROVIDERS: ATTEND Family Medicine
DX: E87.6 Hypokalemia (principal)
CPT/HCPCS: 80053; 83735; 84100; 85027

== ENCOUNTER 2021-02-09 05:09 | Outpatient (CLI) | payer OTHER ==
[2021-02-09 06:08] LABS: POTASSIUM 3.8 mmol/L (3.6-5.2)
[2021-02-09 09:01] LABS: PLATELET COUNT 128 K/uL (152-353)
== END 2021-02-09 23:00 | disposition home or self-care (01) ==
LOC: LAB 05:09
PROVIDERS: ATTEND Family Medicine
DX: J44.9 Chronic obstructive pulmonary disease, unspecified (principal); E11.42 Type 2 diabetes mellitus with diabetic polyneuropathy; E03.8 Other specified hypothyroidism; E78.49 Other hyperlipidemia; D50.8 Other iron deficiency anemias; E11.65 Type 2 diabetes mellitus with hyperglycemia; I10 Essential (primary) hypertension
CPT/HCPCS: 80053; 83036; 84443; 85027

== ENCOUNTER 2021-02-09 09:51 | Inpatient (IN) | payer OTHER | END 2021-03-11 08:11 | disposition still patient (30) | LOC: PAVA 09:51 | PROVIDERS: ADMIT Family Medicine; ATTEND Family Medicine ==

== ENCOUNTER 2021-03-04 11:49 | Outpatient (CLI) | payer OTHER | END 2021-03-04 21:43 | disposition home or self-care (01) | LOC: US 11:49 | PROVIDERS: ATTEND Nurse Practitioner Family | DX: N90.89 Other specified noninflammatory disorders of vulva and perineum (principal) ==

== ENCOUNTER 2021-03-21 08:10 | Outpatient (CLI) | payer OTHER ==
[2021-03-21 08:52] LABS: PLATELET COUNT 122 K/uL (152-353)
[2021-03-21 09:21] LABS: POTASSIUM 3.2 mmol/L (3.6-5.2)
== END 2021-03-21 19:07 | disposition home or self-care (01) ==
LOC: LAB 08:10
PROVIDERS: ATTEND Family Medicine
DX: J44.9 Chronic obstructive pulmonary disease, unspecified (principal); D50.8 Other iron deficiency anemias; E11.42 Type 2 diabetes mellitus with diabetic polyneuropathy; E03.8 Other specified hypothyroidism; N18.9 Chronic kidney disease, unspecified; I12.9 Hypertensive chronic kidney disease with stage 1 through stage 4 chronic kidney disease, or unspecified chronic kidney disease
CPT/HCPCS: 80053; 80074; 81000; 82306; 82570; 83036; 83516; 83970; 84155; 84165; 85027; 86160; 86592; 86701; 86702; 87389

== ENCOUNTER 2021-03-30 07:41 | Day surgery (SDC) | payer OTHER ==
[~2021-03-30] VITALS: Ht 30.5 cm; Wt 0.5 kg
== END 2021-03-30 10:50 ==
LOC: OR 07:41
PROVIDERS: ATTEND Family Medicine
PROC: 0UBM0ZX Excision of Vulva, Open Approach, Diagnostic (ICD-10-PCS; principal; 2021-03-30)
DX: N90.9 Noninflammatory disorder of vulva and perineum, unspecified (principal)
CPT/HCPCS: J1642; J2250; J2704; J3010; J3490

== ENCOUNTER 2021-04-08 15:11 | Outpatient (CLI) | payer OTHER ==
[2021-04-08 16:08] LABS: POTASSIUM 3.9 mmol/L (3.6-5.2)
== END 2021-04-08 21:05 | disposition home or self-care (01) ==
LOC: LAB 15:11
PROVIDERS: ATTEND Family Medicine
DX: E87.1 Hypo-osmolality and hyponatremia (principal); R82.998 Other abnormal findings in urine
CPT/HCPCS: 80053; 81000

== ENCOUNTER 2021-04-11 09:03 | Outpatient (CLI) | payer OTHER | END 2021-04-11 19:21 | disposition home or self-care (01) | LOC: CT 09:03 | PROVIDERS: ATTEND Internal Medicine Gastroenterology | DX: R13.14 Dysphagia, pharyngoesophageal phase (principal); Z85.01 Personal history of malignant neoplasm of esophagus; Z08 Encounter for follow-up examination after completed treatment for malignant neoplasm ==

== ENCOUNTER 2021-04-19 12:30 | Outpatient (CLI) | payer OTHER | END 2021-04-19 19:24 | disposition home or self-care (01) | LOC: LAB 12:30 | PROVIDERS: ATTEND Family Medicine | DX: R94.6 Abnormal results of thyroid function studies (principal); E03.8 Other specified hypothyroidism | CPT/HCPCS: 84443 ==

== ENCOUNTER 2021-04-20 13:52 | Outpatient (CLI) | payer OTHER | END 2021-04-20 20:45 | disposition home or self-care (01) | LOC: US 13:52 | PROVIDERS: ATTEND Internal Medicine Gastroenterology | DX: C15.5 Malignant neoplasm of lower third of esophagus (principal); R41.82 Altered mental status, unspecified ==

== ENCOUNTER 2021-04-27 07:03 | Outpatient (CLI) | payer OTHER ==
[2021-04-27 08:27] LABS: PLATELET COUNT 109 K/uL (152-353)
[2021-04-27 08:38] LABS: POTASSIUM 3.9 mmol/L (3.6-5.2)
== END 2021-04-27 20:27 | disposition home or self-care (01) ==
LOC: LAB 07:03 → RAD 07:03 → LAB 20:27
PROVIDERS: ATTEND Family Medicine
DX: D50.9 Iron deficiency anemia, unspecified (principal); N18.30 Chronic kidney disease, stage 3 unspecified
CPT/HCPCS: 80048; 85027

== ENCOUNTER 2021-04-28 17:36 | Outpatient (CLI) | payer OTHER | END 2021-04-28 19:26 | disposition home or self-care (01) | LOC: LAB 17:36 | PROVIDERS: ATTEND Family Medicine | DX: K21.9 Gastro-esophageal reflux disease without esophagitis (principal); R41.82 Altered mental status, unspecified; R60.9 Edema, unspecified | CPT/HCPCS: 85379 ==

== ENCOUNTER 2021-05-02 14:10 | Outpatient (CLI) | payer OTHER | END 2021-05-02 19:44 | disposition home or self-care (01) | LOC: US 14:10 | PROVIDERS: ATTEND Family Medicine | DX: R60.0 Localized edema (principal); L53.8 Other specified erythematous conditions ==

== ENCOUNTER 2021-05-11 09:16 | Inpatient (IN) | payer OTHER | END 2021-06-11 07:57 | disposition still patient (30) | LOC: PAVA 09:16 | PROVIDERS: ADMIT Family Medicine; ATTEND Family Medicine ==

== ENCOUNTER 2021-05-11 09:59 | Outpatient (CLI) | payer OTHER | END 2021-05-11 20:19 | disposition home or self-care (01) | LOC: LAB 09:59 | PROVIDERS: ATTEND Family Medicine | DX: E11.65 Type 2 diabetes mellitus with hyperglycemia (principal) | CPT/HCPCS: 83036 ==

== ENCOUNTER 2021-05-20 06:55 | Outpatient (CLI) | payer OTHER | END 2021-05-20 18:55 | disposition home or self-care (01) | LOC: LAB 06:55 | PROVIDERS: ATTEND Family Medicine | DX: E03.8 Other specified hypothyroidism (principal) | CPT/HCPCS: 84443 ==

== ENCOUNTER 2021-05-24 13:28 | Outpatient (CLI) | payer OTHER | END 2021-05-24 19:09 | disposition home or self-care (01) | LOC: LAB 13:28 | PROVIDERS: ATTEND Family Medicine | DX: R87.5 Abnormal microbiological findings in specimens from female genital organs (principal) | CPT/HCPCS: 87070; 87077; 87186 ==

== ENCOUNTER 2021-05-27 07:12 | Outpatient (CLI) | payer OTHER ==
[2021-05-27 08:03] LABS: POTASSIUM 2.9 mmol/L (3.6-5.2)
[2021-05-27 08:49] LABS: PLATELET COUNT 170 K/uL (152-353)
== END 2021-05-27 19:23 | disposition home or self-care (01) ==
LOC: LAB 07:12
PROVIDERS: ATTEND Family Medicine
DX: D64.89 Other specified anemias (principal); E11.65 Type 2 diabetes mellitus with hyperglycemia; C15.5 Malignant neoplasm of lower third of esophagus
CPT/HCPCS: 36415; 80053; 81000; 82570; 84132; 84155; 85018; 85027

== ENCOUNTER 2021-06-11 08:19 | Inpatient (IN) | payer OTHER | END 2021-07-12 08:53 | disposition still patient (30) | LOC: PAVA 08:19 | PROVIDERS: ADMIT Family Medicine; ATTEND Family Medicine ==

== ENCOUNTER 2021-07-01 07:20 | Outpatient (CLI) | payer OTHER | END 2021-07-01 20:23 | disposition home or self-care (01) | LOC: LAB 07:20 | PROVIDERS: ATTEND Family Medicine | DX: D50.8 Other iron deficiency anemias (principal); E11.65 Type 2 diabetes mellitus with hyperglycemia | CPT/HCPCS: 80053; 81000; 82306; 82565; 84100; 85018 ==

== ENCOUNTER 2021-07-04 12:12 | Outpatient (CLI) | payer OTHER ==
[2021-07-04 12:25] LABS: PLATELET COUNT 161 K/uL (152-353)
[2021-07-04 12:57] LABS: POTASSIUM 4.3 mmol/L (3.6-5.2)
== END 2021-07-04 22:08 | disposition home or self-care (01) ==
LOC: LAB 12:12
PROVIDERS: ATTEND Family Medicine
DX: R82.998 Other abnormal findings in urine (principal); R79.89 Other specified abnormal findings of blood chemistry; Z13.228 Encounter for screening for other metabolic disorders
CPT/HCPCS: 80053; 81000; 83880; 85027

== ENCOUNTER 2021-07-12 10:54 | Inpatient (IN) | payer OTHER | END 2021-08-09 08:56 | disposition still patient (30) | LOC: PAVA 10:54 | PROVIDERS: ADMIT Family Medicine; ATTEND Family Medicine ==

== ENCOUNTER 2021-08-08 19:20 | Outpatient (CLI) | payer OTHER | END 2021-08-08 20:01 | disposition home or self-care (01) | LOC: LAB 19:20 | PROVIDERS: ATTEND Family Medicine | DX: U07.1 COVID-19 (principal); Z11.52 Encounter for screening for COVID-19 | CPT/HCPCS: 87635; U0003 ==

== ENCOUNTER 2021-08-09 11:23 | Inpatient (IN) | payer OTHER | END 2021-09-09 08:10 | disposition still patient (30) | LOC: PAVA 11:23 | PROVIDERS: ADMIT Family Medicine; ATTEND Family Medicine ==

== ENCOUNTER 2021-08-10 06:25 | Outpatient (CLI) | payer OTHER ==
[2021-08-10 09:06] LABS: PLATELET COUNT 108 K/uL (152-353)
[2021-08-10 09:24] LABS: POTASSIUM 3.6 mmol/L (3.6-5.2)
== END 2021-08-10 19:21 | disposition home or self-care (01) ==
LOC: LAB 06:25
PROVIDERS: ATTEND Family Medicine
DX: E11.42 Type 2 diabetes mellitus with diabetic polyneuropathy (principal); E03.8 Other specified hypothyroidism
CPT/HCPCS: 80053; 83036; 84443; 85027

== ENCOUNTER 2021-09-09 08:38 | Inpatient (IN) | payer OTHER | END 2021-10-09 10:56 | disposition still patient (30) | LOC: PAVA 08:38 | PROVIDERS: ADMIT Family Medicine; ATTEND Family Medicine ==

== ENCOUNTER 2021-10-09 03:55 | Inpatient (IN) | payer OTHER | END 2021-11-09 09:27 | disposition still patient (30) | LOC: PAVA 03:55 | PROVIDERS: ADMIT Family Medicine; ATTEND Family Medicine ==

== ENCOUNTER 2021-11-09 07:51 | Outpatient (CLI) | payer OTHER | END 2021-11-09 19:07 | disposition home or self-care (01) | LOC: LAB 07:51 | PROVIDERS: ATTEND Family Medicine | DX: E11.65 Type 2 diabetes mellitus with hyperglycemia (principal) | CPT/HCPCS: 83036 ==

== ENCOUNTER 2021-11-09 11:45 | Inpatient (IN) | payer OTHER | END 2021-12-09 09:20 | disposition still patient (30) | LOC: PAVA 11:45 → PAVC 11-11 15:56 | PROVIDERS: ADMIT Family Medicine; ATTEND Family Medicine ==

== ENCOUNTER 2021-12-09 13:43 | Inpatient (IN) | payer OTHER | END 2022-01-09 09:25 | disposition still patient (30) | LOC: PAVC 13:43 | PROVIDERS: ADMIT Family Medicine; ATTEND Family Medicine ==

== ENCOUNTER 2021-12-16 09:48 | Outpatient (CLI) | payer OTHER | END 2021-12-16 19:59 | disposition home or self-care (01) | LOC: CT 09:48 | PROVIDERS: ATTEND Nurse Practitioner Family | DX: R91.1 Solitary pulmonary nodule (principal) ==

== ENCOUNTER 2022-01-09 15:11 | Inpatient (IN) | payer OTHER | END 2022-02-09 09:17 | disposition still patient (30) | LOC: PAVC 15:11 | PROVIDERS: ADMIT Family Medicine; ATTEND Family Medicine ==

== ENCOUNTER 2022-02-09 09:46 | Outpatient (CLI) | payer OTHER ==
[2022-02-09 09:59] LABS: PLATELET COUNT 113 K/uL (152-353)
[2022-02-09 10:43] LABS: POTASSIUM 4.3 mmol/L (3.6-5.2)
== END 2022-02-09 19:32 | disposition home or self-care (01) ==
LOC: LAB 09:46
PROVIDERS: ATTEND Family Medicine
DX: E11.42 Type 2 diabetes mellitus with diabetic polyneuropathy (principal); J44.9 Chronic obstructive pulmonary disease, unspecified; E03.8 Other specified hypothyroidism; I10 Essential (primary) hypertension
CPT/HCPCS: 80053; 81000; 82306; 82570; 83036; 83735; 83970; 84100; 84156; 84443; 84550; 85027

== ENCOUNTER 2022-02-09 16:03 | Inpatient (IN) | payer OTHER | END 2022-03-11 10:42 | disposition still patient (30) | LOC: PAVC 16:03 | PROVIDERS: ADMIT Family Medicine; ATTEND Family Medicine ==

== ENCOUNTER 2022-03-11 15:13 | Inpatient (IN) | payer OTHER | END 2022-04-11 10:27 | disposition still patient (30) | LOC: PAVC 15:13 | PROVIDERS: ADMIT Family Medicine; ATTEND Family Medicine ==

== ENCOUNTER 2022-04-02 11:20 | Emergency (ER) | payer OTHER ==
[~2022-04-02] VITALS: Ht 157.5 cm; Wt 77.1 kg
[2022-04-02 12:05] LABS: PLATELET COUNT 210 K/uL (152-353)
[2022-04-02 12:26] LABS: POTASSIUM 5.4 mmol/L (3.6-5.2)
[2022-04-02 14:08] VITALS: BP 123/98; TEMP 98.3
== END 2022-04-02 14:08 | disposition short-term general hospital (02) ==
LOC: ED 11:20
PROVIDERS: Family Medicine
PROC: 0D9670Z Drainage of Stomach with Drainage Device, Via Natural or Artificial Opening (ICD-10-PCS; principal; 2022-04-02)
DX: K92.2 Gastrointestinal hemorrhage, unspecified (principal); D64.89 Other specified anemias; E11.9 Type 2 diabetes mellitus without complications; Z85.028 Personal history of other malignant neoplasm of stomach; Z11.52 Encounter for screening for COVID-19
CPT/HCPCS: 36415; 43754; 80053; 82271; 83690; 83986; 85027; 85610; 86850; 86900; 86901; 87635; 93005; 96360; 96361; 96374; 96375; 99284; J2405; J3490; U0003

== ENCOUNTER 2022-04-11 10:54 | Inpatient (IN) | payer OTHER | END 2022-05-11 12:21 | disposition still patient (30) | LOC: PAVC 10:54 | PROVIDERS: ADMIT Family Medicine; ATTEND Family Medicine ==

== ENCOUNTER 2022-05-11 11:25 | Outpatient (CLI) | payer OTHER | END 2022-05-11 19:04 | disposition home or self-care (01) | LOC: LAB 11:25 | PROVIDERS: ATTEND Family Medicine | DX: E11.42 Type 2 diabetes mellitus with diabetic polyneuropathy (principal) | CPT/HCPCS: 83036 ==

== ENCOUNTER 2022-05-11 12:44 | Inpatient (IN) | payer OTHER ==
[2022-05-16] MEDS ORDERED: LOSA50TA PO (16:13)
[2022-05-16] MEDS ORDERED: ALLO100T22 PO (16:13)
[2022-05-16] MEDS ORDERED: VENL37.511 PO (16:15)
[2022-05-16] MEDS ORDERED: FARXIGA10 MG PO (16:16)
[2022-05-16] MEDS ORDERED: ERGOCALCIF50000 UNIT PO (16:16)
[2022-05-16] MEDS ORDERED: ZIPRASIDONE HYD40 MG PO (16:17)
[2022-05-16] MEDS ORDERED: KETOCONAZOLE21 EX (16:18)
[2022-05-16] MEDS ORDERED: LANTUS100 UNIT/M SC (16:18)
[2022-05-16] MEDS ORDERED: EUTHYROX50 MCG PO (16:19)
[2022-05-16] MEDS ORDERED: MULTIVITAMI1 PO (16:20)
[2022-05-16] MEDS ORDERED: BENEPROTEIN6 GM PO (16:20)
[2022-05-16] MEDS ORDERED: CARV3.12 PO (16:21)
[2022-05-16] MEDS ORDERED: PANTOPRAZOLE 40MG TA PO (16:22)
[2022-05-16] MEDS ORDERED: TOPAMAX25 MG PO (16:22)
[2022-05-16] MEDS ORDERED: TRIA0.1C5 TOP (16:23)
[2022-05-16] MEDS ORDERED: VALP250S3 PO (16:24)
[2022-05-16] MEDS ORDERED: TYLENOL325 MG PO (16:25)
[2022-05-17] MEDS ORDERED: AZIT250T3 PO (16:24)
[2022-05-17] MEDS ORDERED: CEFDINIR300 MG PO (16:26)
== END 2022-06-11 10:58 | disposition still patient (30) ==
LOC: PAVC 12:44
PROVIDERS: ADMIT Family Medicine; ATTEND Family Medicine

== ENCOUNTER 2022-05-16 09:26 | Inpatient (IN) | payer OTHER ==
[~2022-05-16] VITALS: Ht 157.5 cm; Wt 80.4 kg
[2022-05-16] VITALS (14 sets, daily range): BP systolic 92–143; BP diastolic 41–79; TEMP 98.4–101.4; Ht 157.5 cm; Wt 80.4 kg
[2022-05-16 10:01] LABS: PLATELET COUNT 151 K/uL (152-353)
[2022-05-16 10:10] LABS: POTASSIUM 3.9 mmol/L (3.6-5.2)
[2022-05-16 10:15] LABS: PARTIAL THROMBOPLASTIN TIME 21.9 SECONDS (24.5-33.6)
[2022-05-16] MEDS ORDERED: ALLO100T22 PO ×2 (16:13)
[2022-05-16] MEDS ORDERED: LOSA50TA PO ×2 (16:13)
[2022-05-16] MEDS ORDERED: VENL37.511 PO ×2 (16:15)
[2022-05-16] MEDS ORDERED: FARXIGA10 MG PO ×2 (16:16)
[2022-05-16] MEDS ORDERED: ERGOCALCIF50000 UNIT PO ×2 (16:16)
[2022-05-16] MEDS ORDERED: ZIPRASIDONE HYD40 MG PO ×2 (16:17)
[2022-05-16] MEDS ORDERED: LANTUS100 UNIT/M SC ×2 (16:18)
[2022-05-16] MEDS ORDERED: KETOCONAZOLE21 EX ×2 (16:18)
[2022-05-16] MEDS ORDERED: EUTHYROX50 MCG PO ×2 (16:19)
[2022-05-16] MEDS ORDERED: MULTIVITAMI1 PO ×2 (16:20)
[2022-05-16] MEDS ORDERED: BENEPROTEIN6 GM PO ×2 (16:20)
[2022-05-16] MEDS ORDERED: CARV3.12 PO ×2 (16:21)
[2022-05-16] MEDS ORDERED: PANTOPRAZOLE 40MG TA PO ×2 (16:22)
[2022-05-16] MEDS ORDERED: TOPAMAX25 MG PO ×2 (16:22)
[2022-05-16] MEDS ORDERED: TRIA0.1C5 TOP ×2 (16:23)
[2022-05-16] MEDS ORDERED: VALP250S3 PO ×2 (16:24)
[2022-05-16] MEDS ORDERED: TYLENOL325 MG PO ×2 (16:25)
[2022-05-17 03:48] VITALS: BP 124/49; TEMP 99.1
[2022-05-17 08:00] VITALS: BP 142/53; TEMP 98.9
[2022-05-17 12:00] VITALS: BP 126/58; TEMP 99.2
[2022-05-17 13:46] LABS: PLATELET COUNT 129 K/uL (152-353)
[2022-05-17 14:06] LABS: POTASSIUM 4.2 mmol/L (3.6-5.2)
[2022-05-17 16:00] VITALS: BP 127/68; TEMP 99.1
[2022-05-17] MEDS ORDERED: AZIT250T3 PO ×2 (16:24)
[2022-05-17] MEDS ORDERED: CEFDINIR300 MG PO ×2 (16:26)
== END 2022-05-17 18:00 | DRG 194 ==
LOC: ED 09:26 → MED/SURG 13:15
PROVIDERS: Emergency Medicine; ADMIT Internal Medicine; ATTEND Internal Medicine
DX: J18.8 Other pneumonia, unspecified organism (principal); J90 Pleural effusion, not elsewhere classified; E03.8 Other specified hypothyroidism; M10.9 Gout, unspecified; I10 Essential (primary) hypertension; K21.9 Gastro-esophageal reflux disease without esophagitis; E78.49 Other hyperlipidemia; G47.39 Other sleep apnea; F70 Mild intellectual disabilities; F25.0 Schizoaffective disorder, bipolar type; Z85.09 Personal history of malignant neoplasm of other digestive organs; E11.65 Type 2 diabetes mellitus with hyperglycemia
CPT/HCPCS: 36415; 80048; 80053; 81002; 83605; 83880; 84484; 85027; 85610; 85730; 87040; 87502; 87635; 93005; 94664; 94760; 96360; 96361; 96365; 99284; J0696; J1815; J1956; U0003

== ENCOUNTER 2022-06-11 14:42 | Inpatient (IN) | payer OTHER ==
[~2022-06-11 14:42] MED LIST changes: +ALLO100T22 PO; +AZIT250T3 PO; +BENEPROTEIN6 GM PO; +CEFDINIR300 MG PO; +ERGOCALCIF50000 UNIT PO; +EUTHYROX50 MCG PO; +FARXIGA10 MG PO; +KETOCONAZOLE21 EX; +LANTUS100 UNIT/M SC; +LOSA50TA PO; +MULTIVITAMI1 PO; +PANTOPRAZOLE 40MG TA PO; +TRIA0.1C5 TOP; +VALP250S3 PO; +ZIPRASIDONE HYD40 MG PO
== END 2022-07-12 09:30 | disposition still patient (30) ==
LOC: PAVC 14:42
PROVIDERS: ADMIT Family Medicine; ATTEND Family Medicine

== ENCOUNTER 2022-06-12 10:36 | Outpatient (CLI) | payer OTHER ==
[2022-06-12 11:06] LABS: PLATELET COUNT 141 K/uL (152-353)
[2022-06-12 11:21] LABS: POTASSIUM 3.7 mmol/L (3.6-5.2)
== END 2022-06-12 19:07 | disposition home or self-care (01) ==
LOC: LAB 10:36
PROVIDERS: ATTEND Family Medicine
DX: E11.65 Type 2 diabetes mellitus with hyperglycemia (principal); E03.8 Other specified hypothyroidism; N18.9 Chronic kidney disease, unspecified; I12.9 Hypertensive chronic kidney disease with stage 1 through stage 4 chronic kidney disease, or unspecified chronic kidney disease
CPT/HCPCS: 80053; 81000; 82306; 82570; 83735; 83970; 84100; 84156; 84550; 85027

== ENCOUNTER 2022-07-04 08:07 | Outpatient (CLI) | payer OTHER | END 2022-07-04 19:28 | disposition home or self-care (01) | LOC: US 08:07 | PROVIDERS: ATTEND Family Medicine | DX: I12.9 Hypertensive chronic kidney disease with stage 1 through stage 4 chronic kidney disease, or unspecified chronic kidney disease (principal); N18.9 Chronic kidney disease, unspecified ==

== ENCOUNTER 2022-07-12 12:45 | Inpatient (IN) | payer OTHER | END 2022-08-09 15:24 | disposition still patient (30) | LOC: PAVC 12:45 | PROVIDERS: ADMIT Family Medicine; ATTEND Family Medicine ==

== ENCOUNTER 2022-08-09 07:51 | Outpatient (CLI) | payer OTHER ==
[2022-08-09 08:30] LABS: PLATELET COUNT 161 K/uL (152-353)
[2022-08-09 08:53] LABS: POTASSIUM 4.4 mmol/L (3.6-5.2)
== END 2022-08-09 19:11 | disposition home or self-care (01) ==
LOC: LAB 07:51
PROVIDERS: ATTEND Family Medicine
DX: E11.65 Type 2 diabetes mellitus with hyperglycemia (principal); E03.8 Other specified hypothyroidism; D50.8 Other iron deficiency anemias
CPT/HCPCS: 80053; 83036; 84443; 85027

== ENCOUNTER 2022-08-09 15:34 | Inpatient (IN) | payer OTHER | END 2022-09-09 12:27 | disposition still patient (30) | LOC: PAVC 15:34 | PROVIDERS: ADMIT Family Medicine; ATTEND Family Medicine ==

== ENCOUNTER 2022-08-21 11:49 | Outpatient (CLI) | payer OTHER ==
[2022-08-21 12:07] LABS: PLATELET COUNT 208 K/uL (152-353)
[2022-08-21 12:28] LABS: POTASSIUM 4.1 mmol/L (3.6-5.2)
== END 2022-08-21 19:04 | disposition home or self-care (01) ==
LOC: LAB 11:49
PROVIDERS: ATTEND Family Medicine
DX: N18.4 Chronic kidney disease, stage 4 (severe) (principal)
CPT/HCPCS: 80053; 81000; 84100; 84550; 85027

== ENCOUNTER 2022-09-09 12:45 | Inpatient (IN) | payer OTHER | END 2022-10-09 16:45 | disposition still patient (30) | LOC: PAVC 12:45 | PROVIDERS: ADMIT Family Medicine; ATTEND Family Medicine ==

== ENCOUNTER 2022-10-09 16:56 | Inpatient (IN) | payer OTHER | END 2022-11-09 12:39 | disposition still patient (30) | LOC: PAVC 16:56 | PROVIDERS: ADMIT Family Medicine; ATTEND Family Medicine ==

== ENCOUNTER 2022-11-09 12:50 | Inpatient (IN) | payer OTHER | END 2022-12-09 17:45 | disposition still patient (30) | LOC: PAVC 12:50 | PROVIDERS: ADMIT Family Medicine; ATTEND Family Medicine ==